=== PATIENT | female | born 1980 | race American Indian/Alaskan Native ===

== ENCOUNTER 2016-11-02 11:30 | Inpatient (IN) | payer MEDICAID ==
[2016-11-06 14:14] LABS: Hematocrit 45.7 % (30.3-42.9); Hemoglobin 15.1 gm/dl (10.1-14.3); Mean Corpuscular HGB Conc 33 % (30-34); Mean Corpuscular Hemoglobin 27 pg (28-32); Mean Corpuscular Volume 82 fl (79-97); Platelet Count 279 K/mm3 (140-440); Red Blood Count 5.58 M/mm3 (3.65-5.03); White Blood Count 11.1 K/mm3 (4.5-11.0)
--- NOTE | 2016-11-06 14:18 | Anesthesia Consultation ---
Anesthesia Consult and Med Hx Date of service: 11/09/16 - Airway Anesthetic Teeth Evaluation: Good ROM Head & Neck: Adequate Mental/Hyoid Distance: Adequate Mallampati Class: Class III Intubation Access Assessment: Possibly Difficult - Pre-Operative Health Status ASA Pre-Surgery Classification: ASA2 Proposed Anesthetic Plan: General - Pulmonary Hx Smoking: Yes (1 1/2 ppd) - Cardiovascular System Hx Hypertension: Yes (x 2 mos) - Central Nervous System Hx Psychiatric Problems: No - Other Systems Hx Cancer: No Hx Obesity: Yes
[2016-11-06] MEDS ORDERED: LACTATED RINGERS 1,000 ML IV SCH (15:00)
[2016-11-06] MEDS ORDERED: VERSED IV NR (15:00)
[2016-11-06] MEDS ORDERED: PEPCID PO NR (15:00)
--- NOTE | 2016-11-09 11:27 | History and Physical Report ---
History of Present Illness Date of examination: 11/09/16 Date of admission: 11/09/16 11:03 Chief complaint: Left ovarian cyst History of present illness: Pt is a 36yo BF LMP 09/14/16 with a left ovarian cyst, 12.4 x 8.2 x 11.2cms on pelvic u/s, presents for an Exploratory Laparotomy with left ovarian cystectomy. CEA and CA125 - both WNL. Past History Past Medical History: no pertinent history Past Surgical History: no surgical history Family/Genetic History: none Social history: no significant social history, single Medications and Allergies Allergies Allergy/AdvReac Type Severity Reaction Status Date / Time No Known Allergies Allergy Verified 11/06/16 14:23 Home Medications Medication Instructions Recorded Confirmed Last Taken Type Amlodipine Besylate [Amlodipine 10 mg PO DAILY 10/31/16 11/09/16 11/09/16 08:00 History Besylate] Lisinopril [Lisinopril] 40 mg PO DAILY 10/31/16 11/09/16 11/09/16 08:00 History Active Meds: Active Medications Lactated Ringer's (Lactated Ringers) 1,000 mls @ 100 mls/hr IV DIRECT LAYO Review of Systems All systems: negative - Vital Signs Vital signs: Vital Signs Temp Pulse Resp BP 97.4 F L 80 14 140/88 11/06/16 13:45 11/06/16 13:45 11/06/16 13:45 11/06/16 13:45 Temp Pulse Resp BP Pulse Ox 97.4 F L 80 14 140/88 11/06/16 13:45 11/06/16 13:45 11/06/16 13:45 11/06/16 13:45 - Physical Exam Breasts: Positive: deferred Cardiovascular: Regular rate Lungs: Positive: Clear to auscultation Abdomen: Positive: normal appearance, soft Genitourinary (Female): Positive: normal external genitalia Uterus: Positive: normal size Adnexa: right: normal, left: mass, tenderness Extremities: Positive: normal Results Result Diagrams: 11/06/16 13:55 All other labs normal. Ultrasound: report reviewed Assessment and Plan - Patient Problems (1) Left ovarian cyst Diagnosis Date: 11/09/16 Current Visit: Yes Status: Chronic Plan to address problem: A: Pelvic mass - large left ovarian cyst P: Will proceed with an Exploratory Laparotomy with Possible left ovarian cystectomy/left Oophorectomy
--- NOTE | 2016-11-09 11:37 | Anesthesia Day of Surgery ---
Anesthesia Day of Surgery - Day of Surgery Patient Examined: Yes Patient H&P Reviewed: Yes Patient is NPO: Yes
[2016-11-09] MEDS ORDERED: ANCEF/STERILE WATER 2 GM/20 ML 20 ML IV NR (12:00)
[2016-11-09] MEDS ORDERED: DEMEROL IV PRN (12:22)
[2016-11-09] MEDS ORDERED: ZOFRAN IV PRN ×2 (12:22→14:20)
[2016-11-09] MEDS ORDERED: ZEMURON IV ONE (12:43)
[2016-11-09] MEDS ORDERED: XYLOCAINE MPF 2% ONE (12:43)
[2016-11-09] MEDS ORDERED: DIPRIVAN 10 MG/ML IV ONE (12:43)
[2016-11-09] MEDS ORDERED: DILAUDID ONE (12:43)
[2016-11-09] MEDS ORDERED: VERSED IV NR (13:00)
[2016-11-09] MEDS ORDERED: PEPCID PO NR (13:00)
[2016-11-09] MEDS ORDERED: ROBINUL ONE (13:48)
[2016-11-09] MEDS ORDERED: BLOXIVERZ ONE (13:49)
[2016-11-09] MEDS ORDERED: TORADOL ONE (13:49)
[2016-11-09] MEDS ORDERED: ZOFRAN ONE (13:49)
[2016-11-09] MEDS ORDERED: REGLAN IV PRN (14:20)
[2016-11-09] MEDS ORDERED: NARCAN 0.4 MG/1 ML IV PRN (14:20)
[2016-11-09] MEDS ORDERED: BENADRYL IV PRN (14:20)
[2016-11-09] MEDS ORDERED: NACL 0.9% IR ONE (14:21)
[2016-11-09] MEDS ORDERED: PERCOCET 5/325 PO PRN (14:23)
[2016-11-09] MEDS: DILAUDID IV PRN ×4 (14:35→14:50)
--- NOTE | 2016-11-09 14:44 | Operative Report ---
Operative Report Operative Report: Date of procedure: 11/09/2016 Pre-operative diagnosis: Large left ovarian mass Post-operative diagnosis: Same with small right ovarian mass Procedure name(s): 1. Exploratory laparotomy 2. Left oophorectomy 3. Right ovarian cystectomy Surgeon: Doron Mcfarland MD Manual Control Auger Press Operator: None Anesthesia: General endotracheal intubation by Dr. Gamez EBL: 50 mL's Findings: A normal uterus with a 12 x 12 cm left ovarian mass encompassing the left ovary. A 2 x 2 cm right ovarian mass adjacent to the right ovary Procedure: After the patient was correctly identified, she was prepped and draped in usual sterile fashion and placed in dorsolithotomy position. First the skin knife was used to make a transverse skin incision, which was extended down to layer of the fascia, nicked in the midline and extended laterally using the Bovie cautery. The rectus muscles were dissected off the rectus fascia both superiorly and inferiorly. The rectus bellies in the midline and the peritoneum was entered under direct visualization. Exploration of the pelvic organs found the uterus to be normal, and immediately there was noted to be a 12 x 12 cm mass extending from the left ovary and encompassing the left ovary. The right ovary was explored and found to be normal with an adjacent 2 x 2 centimeter mass. This mass was excised and sent to pathology. The left utero-ovarian ligament was doubly clamped and cut, thus freeing the left ovary from the uterine sidewall. This mass was also sent to pathology. Copious amounts of irrigation was performed, and the procedure was considered complete. Both tubes appeared to be normal bilaterally. The uterus was then returned to its normal anatomical position, and the peritoneum was reapproximated using 0 Vicryl suture in a running interlocking fashion. The rectus muscles were also loosely reapproximated using 0 Vicryl suture in a [id number] configuration. The fascia was then reapproximated using 0 Vicryl suture in a running interlocking fashion. The subcutaneous layer was made hemostatic using Bovie cautery and the skin edges reapproximated using 4-0 Vicryl suture in a subcuticular fashion. The patient tolerated the procedure well and was transported to recovery in stable condition.
--- NOTE | 2016-11-09 14:59 | Post Anesthesia Evaluation ---
- Post Anesthesia Evaluation Patient Participated: Yes Airway Patent: Yes Stable Respiratory Function: Yes Temp > 96.8F: Yes Pain Manageable: Yes Adequeate Hydration: Yes Anesthesia Complications: No Block Receding Appropriately: Not Applicable
[2016-11-09] MEDS ORDERED: MORPHINE PCA 30MG/30ML IV SCH (15:00)
[2016-11-09] MEDS ORDERED: NACL 0.9% 1000 ML 1,000 ML IV SCH (15:00)
[2016-11-09] MEDS: D5LR 1,000 ML IV SCH (16:37)
[2016-11-09] MEDS ORDERED: ANCEF/NS 1 GM/50 ML 50 ML IV SCH (18:00)
[2016-11-09] MEDS: TORADOL IV SCH (20:35)
[2016-11-09] MEDS: SENOKOT S PO SCH (22:00)
[2016-11-10] MEDS: D5LR 1,000 ML IV SCH
[2016-11-10] MEDS: TORADOL IV SCH (03:50)
[2016-11-10] MEDS ORDERED: ANCEF/NS 1 GM/50 ML 50 ML IV SCH (04:00)
[2016-11-10 06:41] LABS: Hemoglobin 13.5 gm/dl (10.1-14.3)
--- NOTE | 2016-11-10 07:16 | Progress Note ---
Assessment and Plan - Patient Problems (1) Left ovarian cyst Diagnosis Date: 11/09/16 Current Visit: Yes Status: Resolved (2) Status post left oophorectomy Diagnosis Date: 11/10/16 Current Visit: Yes Status: Resolved Plan to address problem: A: S/P Left Oophorectomy with Right Ovarian cystectomy - POD #1 Doing well P: Continue RPOC Probable discharge to home in 24 hrs Subjective - Subjective Date of service: 11/10/16 Principal diagnosis: s/p Left Oophorectomy; Right ovarian cystectomy Interval history: Pt is feeling well without complaints. Tolerating a liquid diet without nausea or vomiting, ambulating and voiding without difficulty. Patient reports: appetite normal, voiding normally, pain well controlled, ambulating normally, no dizzy ambulation, no flatus, no bowel movement Objective - Vital Signs Latest vital signs: Vital Signs Temp Pulse Pulse Resp BP BP Pulse Ox 11/10/16 04:00 98.9 F 54 L 16 121/73 11/10/16 00:00 98.7 F 55 L 18 124/72 11/09/16 20:00 98.5 F 81 18 115/73 11/09/16 16:10 97.2 F L 69 20 108/55 11/09/16 15:49 14 11/09/16 15:45 65 16 100/45 98 11/09/16 15:30 63 15 109/51 98 11/09/16 15:00 63 15 116/61 98 11/09/16 14:50 69 15 123/68 98 11/09/16 14:45 68 16 118/72 98 11/09/16 14:40 98 F 66 16 116/68 98 11/09/16 14:35 16 11/09/16 11:20 98.0 F 59 L 16 104/70 95 Intake and Output 11/09/16 11/10/16 11/10/16 22:59 06:59 14:59 Intake Total 1075 735 Output Total 100 1350 Balance 975 -615 Intake: IV 985 735 Ancef/Ns 1 gm/50 ml 50 ml 50 50 @ 100 mls/hr IV Q8H LAYO Rx#:[id number] D5lr 1,000 ml @ 125 mls/ 810 685 hr IV DIRECT LAYO Rx#: [id number] Left Hand 125 Oral 90 Output: Urine 100 1350 Indwelling Catheter 100 1350 Other: Total, Intake Amount 90 Total, Output Amount 100 300 Voiding Method Indwelling Catheter - Exam Breasts: Present: deferred Cardiovascular: Present: Regular rate Lungs: Present: Clear to auscultation Abdomen: Present: normal appearance, soft Extremities: Present: normal Incision: Present: normal, dry, intact, dressed Comments: Laboratory Tests 11/06/16 11/06/16 11/06/16 13:55 13:55 13:55 WBC 11.1 H RBC 5.58 H Hgb 15.1 H Hct 45.7 H MCV 82 MCH 27 L MCHC 33 RDW 15.0 Plt Count 279 HCG, Qual Negative Blood Type O POSITIVE Antibody Screen Negative 11/10/16 05:54 WBC RBC Hgb 13.5 Hct 42.0 MCV MCH MCHC RDW Plt Count HCG, Qual Blood Type Antibody Screen
[2016-11-10 08:56] LABS: Hematocrit 42.6 % (30.3-42.9); Hemoglobin 13.6 gm/dl (10.1-14.3); Mean Corpuscular HGB Conc 32 % (30-34); Mean Corpuscular Hemoglobin 26 pg (28-32); Mean Corpuscular Volume 81 fl (79-97); Platelet Count 231 K/mm3 (140-440); Red Blood Count 5.23 M/mm3 (3.65-5.03); Red Cell Distribution Width 15.2 % (13.2-15.2); White Blood Count 13.6 K/mm3 (4.5-11.0)
[2016-11-10] MEDS: SENOKOT S PO SCH ×2 (14:32→22:36)
[2016-11-10] MEDS: NORCO 5/325 PO PRN ×2 (17:21→22:36)
[2016-11-11] MEDS: TORADOL IV SCH
[2016-11-11] MEDS: SENOKOT S PO SCH (09:27)
--- NOTE | 2016-11-11 09:38 | Progress Note ---
Assessment and Plan - Patient Problems (1) Left ovarian cyst Diagnosis Date: 11/09/16 Current Visit: Yes Status: Resolved Plan to address problem: A: Pelvic mass - large left ovarian cyst P: Will proceed with an Exploratory Laparotomy with Possible left ovarian cystectomy/left Oophorectomy (2) Status post left oophorectomy Diagnosis Date: 11/10/16 Current Visit: Yes Status: Resolved Plan to address problem: A: S/P Left Oophorectomy with Right Ovarian cystectomy - POD #1 Doing well P: Continue RPOC Probable discharge to home in 24 hrs A: S/P Left Oophorectomy with Right Ovarian cystectomy - POD #2 Doing well P: May go home today. Subjective - Subjective Date of service: 11/11/16 Principal diagnosis: s/p Left Oophorectomy; Right ovarian cystectomy - POD #2 Interval history: Pt is feeling well without complaints. Tolerating reg diet without nausea or vomiting, ambulating and voiding without difficulty. Patient reports: appetite normal, voiding normally, pain well controlled, flatus , ambulating normally Objective - Vital Signs Latest vital signs: Vital Signs Temp Pulse Resp BP 11/11/16 08:46 98.0 F 64 18 108/56 11/11/16 04:43 98.3 F 62 16 117/70 11/11/16 00:00 97.6 F 67 20 112/69 11/10/16 22:36 18 11/10/16 19:50 98.5 F 84 20 135/67 11/10/16 16:00 98.9 F 80 20 126/92 Intake and Output 11/10/16 11/11/16 11/11/16 22:59 06:59 14:59 Intake Total 200 240 120 Balance 200 240 120 Intake: Oral 200 120 Intake, Free Water 240 Other: Total, Intake Amount 200 120 # Voids Indwelling Catheter 1 Void 1 1 - Exam Cardiovascular: Present: Regular rate Lungs: Present: Clear to auscultation Abdomen: Present: normal appearance, soft Uterus: Present: normal Extremities: Present: normal Incision: Present: normal, dry, intact, dressed
--- NOTE | 2016-11-11 10:09 | Discharge Summary ---
Providers - Providers Date of Admission: 11/09/16 11:03 Date of discharge: 11/11/16 Attending physician: KAY GUZMAN Primary care physician: [employer] Hospitalization Reason for admission: other (Pelvic mass; ) Procedure: other (Exploratory laparotomy with Left Oophorectomy and Right Ovarian cystectomy) Incision: normal, dry, intact Other procedures: none complications: none Discharge diagnosis: other (s/p Left Oophorectomy with Right Ovarian cystectomy) Hospital course: Pt is a 36yo BF LMP 09/14/16 with a left ovarian cyst, 12.4 x 8.2 x 11.2cms on pelvic u/s, who presented for an Exploratory Laparotomy and had a left oophorectomy with a right ovarian cystectomy. Pt tolerated the procedure well, and postoperative course was unremarkable. By POD #2 she was tolerating a reg diet without nausea or vomiting, ambulating and voiding without difficulty. She was therefore discharged to home in stable condition. Condition at discharge: Good Disposition: DISCHARGED TO HOME OR SELFCARE - Discharge Diagnoses (1) Left ovarian cyst Status: Resolved (2) Status post left oophorectomy Status: Resolved Plan - Discharge Medications Prescriptions: HYDROcodone/APAP 5-325 [[place] 5-325 mg TAB] 1 each PO Q6HR PRN #30 tablet PRN Reason: Pain, Moderate (4-6) Ibuprofen [Motrin] 800 mg PO Q8HR PRN #30 tablet PRN Reason: Moder Pain Unrelieved By [place] - Provider Discharge Summary Activity: routine, no sex for 6 weeks, no heavy lifting 4 weeks, no strenuous exercise Diet: routine Instructions: routine Additional instructions: [] Smoking cessation referral if applicable(refer to patient education folder for contact #) [] Refer to [facility] Booklet Call your doctor immediately for: * Fever > 100.5 * Heavy vaginal bleeding ( >1 pad per hour) * Severe persistent headache * Shortness of breath * Reddened, hot, painful area to leg or breast * Drainage or odor from incision. * Keep incision clean and dry at all times and follow doctor's instructions regarding bathing/showering - Follow up plan Follow up: PRIMARY CAREMD [Primary Care Provider] - 7 Days KAY GUZMAN MD [Staff Physician] - 14 Days
[2016-11-11] MEDS: NORCO 5/325 PO PRN (10:27)
[2016-11-11 12:27] VITALS: BP 102/64
== END 2016-11-11 12:55 | disposition home or self-care (01) | DRG 743 ==
LOC: 3A 11-09 11:03 → OB 11-09 14:49
PROVIDERS: ADMIT Obstetrics & Gynecology; ATTEND Obstetrics & Gynecology
PROC: 0UB00ZZ Excision of Right Ovary, Open Approach (ICD-10-PCS; principal; 2016-11-09)
PROC: 0UT10ZZ Resection of Left Ovary, Open Approach (ICD-10-PCS; 2016-11-09)
DX: N83.202 Unspecified ovarian cyst, left side (principal); N83.9 Noninflammatory disorder of ovary, fallopian tube and broad ligament, unspecified; F17.210 Nicotine dependence, cigarettes, uncomplicated; E66.9 Obesity, unspecified; Z79.899 Other long term (current) drug therapy; Z68.37 Body mass index [BMI] 37.0-37.9, adult; I10 Essential (primary) hypertension
CPT/HCPCS: 36415; 84703; 85014; 85018; 85027; 86850; 86900; 86901; 88305; J0690; J1170; J1885; J2250; J2270; J2405; J2704; J2710; J7030; J7120; J7121